=== PATIENT | female | born 1980 | race Two or more races ===

== ENCOUNTER 2018-12-30 08:37 | Emergency (ER) | payer MEDICAID ==
[~2018-12-30] VITALS: Ht 154.9 cm; Wt 68.0 kg
[2018-12-30 09:12] LABS: Basophils # (auto) 0 uL; Basophils % (auto) 0.4 % (0.0-2.0); Eosinophils # (auto) 0.1 uL; Eosinophils % (auto) 0.8 % (0.0-7.0); Hematocrit 44.9 % (36.0-46.0); Hemoglobin 14.5 g/dL (12.2-16.2); Lymphocytes % (auto) 31.8 % (10.0-50.0); Mean Corpuscular Hemoglobin 28.6 pg (28.0-32.0); Mean Corpuscular Hgb Conc. 32.4 g/dL (32.0-36.0); Mean Corpuscular Volume 88.5 fL (80.0-100.0); Monocytes # (auto) 0.5 uL; Monocytes % (auto) 5.7 % (0.0-12.0); Neutrophils # (auto) 5.9 uL; Neutrophils % (auto) 61.3 % (37.0-80.0); Platelet Count (auto) 252 10^3/uL (140-450); Red Blood Cells 5.07 10^6/uL (4.0-5.20); Red Cell Distribution Width 14.3 % (11.8-14.3); White Blood Cell 9.6 10^3/uL (4.4-10.8)
[2018-12-30 09:34] LABS: Urine Bacteria FEW /hpf (None Seen); Urine Blood Negative /uL (Negative); Urine Specific Gravity 1.018 (1.001-1.035); Urine WBC 1 /hpf (0 - 5)
[2018-12-30 09:42] LABS: Albumin 4.2 g/dL (3.4-5.0); Calcium 8.7 mg/dL (8.5-10.1); Potassium 4.8 mmol/L (3.5-5.1)
[2018-12-30] MEDS ORDERED: SODIUM CHLORIDE 0.9% 1,000 ML IV ONE (09:43)
[2018-12-30] MEDS ORDERED: SODIUM CHLORIDE 0.9% 500 ML IVB ONE (09:43)
[2018-12-30 09:44] LABS: BUN/Creatinine Ratio 15.4
[2018-12-30] MEDS ORDERED: PROMETHAZINE HCL 25 MG/ML 1ML IV PRN (09:45)
[2018-12-30] MEDS ORDERED: KETOROLAC TROMETH 30 MG/ML 1ML VIAL IV ONE (09:45)
[2018-12-30 09:47] LABS: Bilirubin, Total 0.5 mg/dL (0.2-1.0)
[2018-12-30 10:35] LABS: Magnesium 2.5 mg/dL (1.6-2.6)
[2018-12-30 14:16] VITALS: BP 110/68
== END 2018-12-30 14:38 | disposition home or self-care (01) ==
LOC: ER 08:37
DX: R10.9 Unspecified abdominal pain (principal); N83.209 Unspecified ovarian cyst, unspecified side; K62.89 Other specified diseases of anus and rectum; Z98.51 Tubal ligation status
CPT/HCPCS: 36415; 71046; 74176; 80053; 81001; 81025; 83690; 83735; 85025; 96374; 96375; 99284; J1885; J2550; J7030

== ENCOUNTER 2020-05-23 21:28 | Emergency (ER) | payer MEDICAID ==
[~2020-05-23] VITALS: Ht 167.6 cm; Wt 65.8 kg
[2020-05-23 23:50] LABS: Basophils # (auto) 0 10 ^3/uL (0-0.2); Basophils % (auto) 0.5 % (0.0-2.0); Eosinophils # (auto) 0.1 10 ^3/uL (0-0.8); Eosinophils % (auto) 1.2 % (0.0-7.0); Hematocrit 39.6 % (36.0-46.0); Hemoglobin 13.1 g/dL (12.2-16.2); Lymphocytes # (auto) 2.4 10 ^3/uL (0.4-5.4); Lymphocytes % (auto) 25.8 % (10.0-50.0); Mean Corpuscular Hemoglobin 29.1 pg (28.0-32.0); Monocytes # (auto) 0.9 10 ^3/uL (0-1.3); Monocytes % (auto) 9.9 % (0.0-12.0); Neutrophils # (auto) 5.9 10 ^3/uL (1.6-8.6); Neutrophils % (auto) 62.6 % (37.0-80.0); Platelet Count (auto) 231 10^3/uL (140-450); Red Cell Distribution Width 13.7 % (11.8-14.3); White Blood Cell 9.3 10^3/uL (4.4-10.8)
[2020-05-24 00:12] LABS: Albumin 3.4 g/dL (3.4-5.0); Calcium 8.3 mg/dL (8.5-10.1); Magnesium 2.2 mg/dL (1.6-2.6); Potassium 4.7 mmol/L (3.5-5.1)
[2020-05-24 00:14] LABS: BUN/Creatinine Ratio 22.4
[2020-05-24 00:17] LABS: INR 0.97 (0.9-1.15); Partial Thromboplastin Time 29.1 sec (23.0-31.2)
[2020-05-24 00:22] LABS: Bilirubin, Total 0.2 mg/dL (0.2-1.0); Total Protein 7.5 g/dL (6.4-8.2)
[2020-05-24 02:30] VITALS: BP 118/77
[2020-05-24] MEDS ORDERED: ACETAMINOPHEN 325 MG TAB PO PRN (05:15)
[2020-05-24] MEDS ORDERED: TEMAZEPAM 15 MG CAP PO PRN (05:15)
[2020-05-24] MEDS ORDERED: NITROGLYCERIN 0.4 MG SL TAB SL PRN (05:15)
[2020-05-24] MEDS ORDERED: ONDANSETRON HCL 4 MG/2 ML VIAL IV PRN (05:15)
[2020-05-24] MEDS ORDERED: MORPHINE SULF INJ 2 MG/ML SYRINGE 1ML IV PRN (05:15)
[2020-05-24] MEDS ORDERED: ASPirin 81 mg TAB PO SCH (10:00)
[2020-05-24] MEDS ORDERED: FAMOTIDINE 20 MG TAB PO SCH (10:00)
[2020-05-24] MEDS ORDERED: IBUP200C14 PO (18:01)
[2020-05-24] MEDS ORDERED: ATORVASTATIN 20 MG TAB PO SCH (22:00)
== END 2020-05-24 04:27 | disposition left against medical advice (07) ==
LOC: ER 21:28
DX: R06.02 Shortness of breath (principal); R79.1 Abnormal coagulation profile; R11.2 Nausea with vomiting, unspecified; Z20.828 Contact with and (suspected) exposure to other viral communicable diseases
CPT/HCPCS: 36415; 71045; 80053; 83735; 83880; 84484; 85025; 85379; 85610; 85730

== ENCOUNTER 2020-05-24 10:22 | Inpatient (IN) | payer MEDICAID ==
[~2020-05-24] VITALS: Ht 152.4 cm; Wt 69.0 kg
[2020-05-24 10:57] LABS: Basophils # (auto) 0.1 10 ^3/uL (0-0.2); Basophils % (auto) 0.7 % (0.0-2.0); Eosinophils # (auto) 0.1 10 ^3/uL (0-0.8); Eosinophils % (auto) 0.7 % (0.0-7.0); Hematocrit 40.3 % (36.0-46.0); Hemoglobin 13.4 g/dL (12.2-16.2); Lymphocytes # (auto) 1.7 10 ^3/uL (0.4-5.4); Lymphocytes % (auto) 20.3 % (10.0-50.0); Mean Corpuscular Hemoglobin 29.2 pg (28.0-32.0); Mean Corpuscular Hgb Conc. 33.3 g/dL (32.0-36.0); Mean Corpuscular Volume 87.7 fL (80.0-100.0); Monocytes # (auto) 0.6 10 ^3/uL (0-1.3); Monocytes % (auto) 6.7 % (0.0-12.0); Neutrophils # (auto) 6.1 10 ^3/uL (1.6-8.6); Neutrophils % (auto) 71.6 % (37.0-80.0); Nucleated Red Blood Cells % 0.1 %; Platelet Count (auto) 257 10^3/uL (140-450); Red Blood Cells 4.59 10^6/uL (4.0-5.20); Red Cell Distribution Width 14.1 % (11.8-14.3); White Blood Cell 8.5 10^3/uL (4.4-10.8)
[2020-05-24 11:02] LABS: Urine Bacteria NONE SEEN /hpf (None Seen); Urine Blood 1+ /uL (Negative); Urine Mucus FEW (None Seen); Urine Specific Gravity 1.018 (1.001-1.035); Urine WBC 1 /hpf (0 - 5)
[2020-05-24 11:14] LABS: Albumin 3.8 g/dL (3.4-5.0); Calcium 8.9 mg/dL (8.5-10.1); Potassium 3.9 mmol/L (3.5-5.1)
[2020-05-24 11:21] LABS: BUN/Creatinine Ratio 18.3; Bilirubin, Total 0.5 mg/dL (0.2-1.0); Total Protein 7.7 g/dL (6.4-8.2)
[2020-05-24] MEDS ORDERED: ASPirin-EC 81 mg tab PO ONE (13:00)
[2020-05-24 13:17] LABS: Magnesium 2.6 mg/dL (1.6-2.6)
[2020-05-24 13:41] LABS: Partial Thromboplastin Time 29.3 sec (23.0-31.2)
[2020-05-24] MEDS ORDERED: MORPHINE SULF INJ 2 MG/ML SYRINGE 1ML IV PRN ×2 (17:15)
[2020-05-24] MEDS ORDERED: ATENOLOL 25 MG TAB PO ONE (17:15)
[2020-05-24] MEDS ORDERED: SODIUM CHLORIDE 0.9% 1,000 ML IV ONE (17:15)
[2020-05-24] MEDS ORDERED: KETOROLAC TROMETH 30 MG/ML 1ML VIAL IV ONE (17:15)
[2020-05-24] MEDS ORDERED: ONDANSETRON HCL 4 MG/2 ML VIAL IV PRN (17:15)
[2020-05-24] MEDS ORDERED: PANTOPRAZOLE 40 MG/10 ML VIAL INJ IV ONE (17:15)
[2020-05-24] MEDS ORDERED: HYDROcodone-ACET 5/325MG TAB PO PRN (17:15)
[2020-05-24] MEDS ORDERED: IBUPROFEN 800 MG TAB PO ONE (17:15)
[2020-05-24] MEDS ORDERED: NITROGLYCERIN 0.4 MG SL TAB SL PRN (17:15)
[2020-05-24] MEDS ORDERED: ENOXAPARIN SOD 40 MG/0.4 ML SYRINGE SC ONE (17:15)
[2020-05-24] MEDS ORDERED: DOCUSATE SOD 100 MG CAP PO PRN (17:15)
[2020-05-24] MEDS ORDERED: LORazepam 0.5 MG TAB PO PRN (17:15)
[2020-05-24] MEDS ORDERED: ALUM & MAG HYDROX-SIMETH LIQ(MAALOX) 30 ML PO PRN (17:15)
[2020-05-24] MEDS ORDERED: IBUP200C14 PO (18:01)
[2020-05-24 18:42] LABS: Cholesterol 171 mg/dL (< 200); Triglycerides 217 mg/dL (< 150)
[2020-05-24 18:43] LABS: HDL Cholesterol 36 mg/dL (40-59); LDL Cholesterol 112 mg/dL (< 100)
[2020-05-24] MEDS: SODIUM CHLORIDE 0.9% 1,000 ML IV SCH (18:52)
[2020-05-24 19:10] LABS: Alcohol, Urine < 3.0 mg/dL (0-10); Amphetamine Screen, Urine NEGATIVE (NEGATIVE); Barbiturate Scree,Urine NEGATIVE (NEGATIVE); Benzodiazephine Screen, Urine NEGATIVE (NEGATIVE); Cannabinoid Screen, Urine NEGATIVE (NEGATIVE); Cocaine Screen, Urine NEGATIVE (NEGATIVE); Opiate Scree,Urine NEGATIVE (NEGATIVE); Phencyclidine Screen, Urine NEGATIVE (NEGATIVE)
[2020-05-24 21:00] VITALS: BP 113/66
[2020-05-24] MEDS: ATENOLOL 25 MG TAB PO SCH (22:21)
[2020-05-25 04:45] VITALS: BP 119/71
[2020-05-25] MEDS ORDERED: IBUPROFEN 600 MG TAB PO PRN (05:15)
[2020-05-25] MEDS: SODIUM CHLORIDE 0.9% 1,000 ML IV SCH (06:24)
[2020-05-25 09:00] VITALS: BP 117/65
[2020-05-25] MEDS: ENOXAPARIN SOD 40 MG/0.4 ML SYRINGE SC SCH (09:58)
[2020-05-25] MEDS: ASPirin 81 mg TAB PO SCH (09:58)
[2020-05-25] MEDS: ATENOLOL 25 MG TAB PO SCH ×2 (09:59→22:19)
[2020-05-25] MEDS ORDERED: PANTOPRAZOLE 40 MG/10 ML VIAL INJ IV SCH (10:00)
[2020-05-25 13:00] VITALS: BP 126/66
[2020-05-25 17:00] VITALS: BP 119/73
[2020-05-25 21:46] VITALS: BP 108/60
[2020-05-25] MEDS ORDERED: ATORVASTATIN 20 MG TAB PO SCH (22:00)
[2020-05-26 04:45] VITALS: BP 107/64
[2020-05-26 06:31] LABS: T3 Total 0.77 ng/mL (0.60-1.81)
[2020-05-26 06:32] LABS: Free T3 2.08 pg/mL (2.3-4.2)
[2020-05-26] MEDS: SUCRALFATE 1 GM/10 ML ORAL SUSP PO SCH ×3 (06:36→17:00)
[2020-05-26 09:00] VITALS: BP 103/63
[2020-05-26] MEDS: ENOXAPARIN SOD 40 MG/0.4 ML SYRINGE SC SCH (09:02)
[2020-05-26] MEDS: ATENOLOL 25 MG TAB PO SCH (09:03)
[2020-05-26] MEDS: ASPirin 81 mg TAB PO SCH (09:04)
[2020-05-26] MEDS ORDERED: PANTOPRAZOLE 40 MG TAB PO SCH (10:00)
[2020-05-26 12:43] VITALS: BP 102/77
[2020-05-26] MEDS ORDERED: PANT40T PO (13:47)
[2020-05-26 15:15] VITALS: BP 103/63
== END 2020-05-26 17:50 | disposition home or self-care (01) | DRG 243 ==
LOC: ER 10:22 → TELE 10:23 → TELE-WESTW 20:58
PROVIDERS: ADMIT Hospitalist; ATTEND Internal Medicine Nephrology
DX: K21.9 Gastro-esophageal reflux disease without esophagitis (principal); I21.A1 Myocardial infarction type 2; E06.1 Subacute thyroiditis; E78.5 Hyperlipidemia, unspecified; E05.90 Thyrotoxicosis, unspecified without thyrotoxic crisis or storm; E66.9 Obesity, unspecified; Z82.49 Family history of ischemic heart disease and other diseases of the circulatory system; Z83.3 Family history of diabetes mellitus; Z82.0 Family history of epilepsy and other diseases of the nervous system; Z68.28 Body mass index [BMI] 28.0-28.9, adult
CPT/HCPCS: 36415; 71045; 80053; 80061; 80307; 81001; 83036; 83690; 83735; 83880; 84439; 84443; 84480; 84481; 84484; 84702; 85025; 85379; 85610; 85730; 87040; 87081; 87086; 93005; 93306; 96361; 96372; 96374; 96375; C9113; G0378; J1885